=== PATIENT | male | born 1995 | race Caucasian/White ===

== ENCOUNTER 2023-08-18 03:46 | Emergency (ER) | payer OTHER, SELFPAY ==
[2023-08-18 03:50] VITALS: BP 147/108
[2023-08-18 04:17] LABS: % Basophils 0.9 % (0-2); % Eosinophils 3.3 % (0-6); % Immature Granulocytes 0.4 % (0-0.5); % Monocytes 14.1 % (1.7-9.3); % Neutrophils 58.3 % (42.2-75.2); Absolute Basophils 0.1 10^3/uL (0-0.2); Absolute Eosinophils 0.3 10^3/uL (0-0.7); Absolute Lymphocytes 2.3 10^3/uL (1.2-3.4); Absolute Monocytes 1.4 10^3/uL (0.1-0.6); Absolute Neutrophils 5.9 10^3/uL (1.4-6.5); Hematocrit 45.9 % (39.0-52.0); Hemoglobin 15.9 g/dL (13.0-18.0); Mean Corp Hgb Conc. 34.6 g/dL (33.0-37.0); Mean Corpuscular Hgb 30.5 pg (27.0-31.0); Mean Corpuscular Volume 87.9 fL (80.0-94.0); Nucleated Red Blood Cells % 0 % (-); Platelet Count 349 10^3/uL (130-400); Red Blood Cell Count 5.22 10^6/uL (4.70-6.10); Red Cell Dist. Width 12.5 % (11.5-14.5); White Blood Cell Count 10.1 10^3/uL (4.8-10.8)
--- NOTE | 2023-08-18 04:19 | ED.GENMED ---
History of Present Illness
General
Chief Complaint: Abdominal Pain
Source: patient
Exam Limitations: none
Time Seen by Provider: 08/18/23 04:18
Nursing documentation reviewed up to this point in time: agreed with
Travel History
Have you had any contact with someone who has COVID-19?: Unable to Answer
Do you have any symptoms of coronavirus? Fever > 100 degrees, chills, cough, shortness of breath, sore throat, loss of taste or smell, muscle aches, or headache?: Unable to Answer
History of Present Illness
History of Present Illness:
Pleasant 28-year-old male presents with 1 week of abdominal pain. He states that it has been waxing and waning. Tonight he stated that he 'called his mom 14 times but she did not excelsior picker the phone so he drove himself to the emergency department '.
Upon arrival, he states that the pain was so bad he lied down on the triage floor. Patient denies fever, chills, nausea or vomiting. He states that this pain is been going on for a week. He did have some relief with an enema.
Past History
Past History
ED Past Medical History: Psychiatric (Anxiety, asbergers syndrome, depression)
ED Past Surgical History: Other (Adenoidectomy, myringotomy tubes)
Social History
Tobacco: Former smoker
Alcohol: None
Drug: None
Personal: Single
Living: with family
Employment: Employed
Family History
Family History: Other (Noncontributory)
Review of Systems
Review of Systems
Allergies reviewed?: Yes
Other source history: family
All Other Systems: ROS reviewed and negative except as documented in HPI and ROS
Constitutional: Reports sleep disturbance
ABD/GI: Reports abdominal pain and constipated
Psychiatric: Reports anxiety
Phy Exam
General Physical Exam
General Presentation: well appearing and no apparent distress
General Skin: warm and dry
General Habitus: normal
General Mental: alert
General Hydration: appears well hydrated
ENT Exam
ENT Exam: EOMI
Eye Exam
Eye Exam: PERRL, cornea clear and conjunctiva normal
Cardiovascular Exam
Cardiovascular Exam: regular rate/rhythm, no edema, no murmur and normal peripheral pulses
Pulmonary Exam
Pulmonary Exam: lungs clear, no respiratory distress, no rales, no crackles, no rhonchi, no stridor, no wheezing and no cough
Gastrointestinal Exam
Gastrointestinal Exam: normal bowel sounds, non tender, soft, no organomegaly, no pulsatile mass and non distended
Neurological Exam
Neurological Exam: alert, oriented x3, no motor deficits and speech normal
Musculoskeletal Exam
Musculoskeletal Exam: full ROM, no edema and neuro vasc intact
Skin Exam
Skin Exam: normal color and warm/dry
Psychiatric Exam
Psychiatric Exam: anxious
Course
Orders/Labs/Results
Orders:
Orders
08/18/23 03:55
IV Insert/Care/Rem.- Treatment PRN
08/18/23 04:06
Complete Blood Count/With Diff Urgent
Comprehensive Metabolic Panel Urgent
Lactic Acid Urgent
Lipase Urgent
08/18/23 04:18
0.9% Sodium Chloride 1000 ml [Nss] 1,000 ml IV BOLUS
HYDROmorphone [Dilaudid] 0.5 mg IV NOW STA
Ondansetron Injectable [Zofran] 4 mg IV NOW STA
08/18/23 04:35
US Abdomen Complete/Upper Urgent
Comment:
Reason For Exam: upper abd pain, incr lfts
08/18/23 05:48
CT Abd/pelvis W Iv Cont Urgent
Comment:
Reason For Exam: abdominal pain
08/18/23 05:49
HYDROmorphone [Dilaudid] 0.5 mg IV NOW STA
08/18/23 07:18
Magnesium Citrate [Citroma] 300 ml PO ONCE ONE
Abnormal Lab Results
08/18/23
04:06
Absolute Monos (auto) 1.4 H 10^3/uL
(0.1-0.6)
Monocytes % 14.1 H %
(1.7-9.3)
Calcium 10.3 H mg/dl
(8.4-10.2)
AST 71 H U/L
(17-59)
ALT 112 H U/L
(0-50)
Lipase 18 L U/L
(23-300)
08/18/23 04:06
08/18/23 04:06
Vital Signs
Initial and Last Documented VS:
Initial Vital Signs
Temp Pulse Resp BP Pulse Ox
97.7 F 82 20 147/108 100
08/18/23 03:50 08/18/23 03:50 08/18/23 03:50 08/18/23 03:50 08/18/23 03:50
Last Documented Vital Signs
Temp Pulse Resp BP Pulse Ox
97.7 F 50 14 159/88 99
08/18/23 03:50 08/18/23 06:08 08/18/23 06:08 08/18/23 07:00 08/18/23 06:08
*Critical Care Note
Total Time (30-74mins, 75-104mins- exclusive of procedures): Not Applicable
Update Note
Update Note:
CT abdomen and pelvis with intravenous contrast
IMPRESSION:
Appendix normal. No bowel obstruction. Gastric and small bowel wall thickening suggesting gastroenteritis.
No cholecystitis or pancreatitis. No obstructing renal stone. Lung bases are clear. Abdominal aorta is of normal caliber.
Mild bladder wall thickening; correlate with urinalysis.
Ultrasound negative
ED Attending Note
-
Portions of this chart may have been created with voice recognition software.� Occasional wrong word or��sound alike� substitutions may have occurred due to the inherent limitations of voice recognition software.
Discharge Plan
Departure
Patient Disposition: Home (Routine Discharge)
Date of Disposition: 08/18/23
Time of Disposition: 07:22
Patient with high blood pressure during this ER visit?: No
Condition: Good
Discharge Problem:
Abdominal pain, Constipation
Prescriptions:
No Action
fluoxetine [Prozac] 20 MG capsule
40 mg PO DAILY
clonidine HCl 0.3 MG tablet
0.3 mg PO HS
zolpidem 10 MG tablet
10 mg PO HS Qty: 7 0RF
Rx Instructions:
Do not combine with alcohol or any other sedatives
Vraylar 3 mg Capsule
3 mg PO DAILY
Referrals:
Manjit Hi DO [Family Provider] -
Activity Restrictions/Additional Instructions:
It was a pleasure meeting you and taking part in your care. We hope for your continued healing and wellness.
Please read discharge instructions in their entirety. However, they are for general education and may not describe your exact diagnosis at discharge. Information on your ER visit and medical conditions were discussed with you along with appropriate
follow up information...
If indicated, please take your medications as instructed and indicated on discharge paperwork.
Please schedule a follow up appointment as directed. Call to schedule an appointment
Please return to the emergency department with ANY change in, persisting, or worsening of symptoms. If any of your symptoms do not improve, or persist, or become more severe within 6-12 hours, please return to the emergency department for further
care.
Please return to the emergency department if you develop a headache, neck pain/stiffness, fever greater than 100.4F, chest pain, shortness of breath, persistent nausea, vomiting, slurred speech, difficulty walking, numbness/tingling, weakness, signs
of infection or any other symptoms that are worrisome to you.
If you have any questions or concerns please do not hesitate to call the Hospital at or E-mail me directly at [email or web address]
Interventions
Interventions:
*Risk Screen - Suicide Last Done: 08/18/23 03:50
*General Assessment Last Done: 08/18/23 03:50
*Neglect/Abuse Screening Last Done: 08/18/23 03:50
ED- Fall Risk Assessment Last Done: 08/18/23 03:50
YT-Gdnqjl-Tktdqpuswy Assessment Last Done: 08/18/23 04:05
Discharge Date and Time
Print Language: DANISH
[2023-08-18 04:27] LABS: Lactic Acid 0.9 mmol/L (0.7-2.0)
[2023-08-18] MEDS: NSS 1000 IV (04:27)
[2023-08-18] MEDS: DILAUDID 0.5 MG IV ×2 (04:28→06:05)
[2023-08-18] MEDS: ZOFRAN 4 MG IV (04:28)
[2023-08-18 04:31] LABS: ALT (SGPT) 112 U/L (0-50); AST (SGOT) 71 U/L (17-59); Albumin 4.9 g/dl (3.5-5.0); Alkaline Phosphatase 40 U/L (38-126); Blood Urea Nitrogen 15 mg/dl (9-20); Calcium 10.3 mg/dl (8.4-10.2); Carbon Dioxide 29 mmol/L (22-30); Chloride 99 mmol/L (98-107); Glucose 89 mg/dl (70-99); Lipase 18 U/L (23-300); Potassium 4.3 mmol/L (3.5-5.1); Sodium 137 mmol/L (135-145); Total Bilirubin 0.4 mg/dl (0.2-1.3); Total Protein 7.5 g/dl (6.3-8.2); eGFR > 60.00
[2023-08-18 04:44] VITALS: BP 152/95
[2023-08-18 06:04] VITALS: BP 154/88
[2023-08-18 06:08] VITALS: BMI 31.4
[2023-08-18 07:00] VITALS: BP 159/88
[2023-08-18] MEDS: CITROMA 300 ML PO (07:27)
--- NOTE | 2023-08-18 08:07 | EDRN ---
Pt left his d/c paperwork in the room
== END 2023-08-18 08:10 | disposition home or self-care (01) ==
LOC: EMR 03:46
PROVIDERS: EMERGENCY PHYSICIAN Student in an Organized Health Care Education/Training Program; FAMILY PHYSICIAN Family Medicine
DX: R10.10 Upper abdominal pain, unspecified (principal); K59.00 Constipation, unspecified; R11.10 Vomiting, unspecified; F41.9 Anxiety disorder, unspecified; F32.A Depression, unspecified; F31.9 Bipolar disorder, unspecified; F84.5 Asperger's syndrome; Z87.891 Personal history of nicotine dependence; Z88.1 Allergy status to other antibiotic agents; Z88.2 Allergy status to sulfonamides; Z91.018 Allergy to other foods
CPT/HCPCS: 99285; 96361; 96374; 96375; 96376; 74177; 76700; 80053; 83605; 83690; 85025; Q9967

== ENCOUNTER 2023-09-30 11:14 | Emergency (ER) | payer OTHER, SELFPAY ==
[2023-09-30 11:19] VITALS: BP 160/100
--- NOTE | 2023-09-30 11:51 | ED.GENMED ---
History of Present Illness
General
Chief Complaint: Alcohol Problem
Source: patient
Exam Limitations: none
Time Seen by Provider: 09/30/23 11:19
Nursing documentation reviewed up to this point in time: agreed with
Travel History
Have you had any contact with someone who has COVID-19?: No
Do you have any symptoms of coronavirus? Fever > 100 degrees, chills, cough, shortness of breath, sore throat, loss of taste or smell, muscle aches, or headache?: No
History of Present Illness
History of Present Illness:
Patient with history of chronic alcoholism for 'years', presents to ED with concern for potential 'withdrawal'. Patient describes shaky sensation and 'not feeling well'. Patient's last alcohol intake was approximately 5 hours ago. Denies fever or
chills. Denies chest pain or shortness of breath. Denies dizziness. Denies headache. Denies abdominal pain. Denies diarrhea. Denies use of any other illicit medications. Patient also smokes daily. Patient is interested in alcohol rehab.
Past History
Past History
ED Past Medical History: Psychiatric (Anxiety, asbergers syndrome, depression)
ED Past Surgical History: Other (Adenoidectomy, myringotomy tubes)
Social History
Tobacco: Former smoker
Alcohol: None
Drug: None
Personal: Single
Living: with family
Employment: Employed
Family History
Family History: Other (Noncontributory)
Review of Systems
Review of Systems
Allergies reviewed?: Yes
All Other Systems: ROS reviewed and negative except as documented in HPI and ROS
Constitutional: Reports no symptoms
EENT: Reports no symptoms
Respiratory: Reports no symptoms
Cardiac: Reports palpitations
ABD/GI: Reports no symptoms
Musculoskeletal: Reports no symptoms
Skin: Reports no symptoms
Neurological: Reports other (Tremor)
Phy Exam
Physical Exam
Physical Exam:
Physical Exam
General: no apparent distress, not acutely ill. afebrile
Head: nc/at. eomi
Neck: supple. no meningeal signs.
Heart: tachycardic, no murmur. equal radial pulses.
Lungs: no acute respiratory distress. clear bilaterally
Abdomen: normal bowel sounds. not tender.
Neuro: alert and oriented. no focal neurological deficits
Skin: no rash
Psychiatric: well kept. interactive and cooperative. anxious appearing
Extremities: no edema. no calf tenderness.
Scores
Withdrawal Assessment of Alcohol
Withdrawal Assessment Completed?: Not applicable
Course
Orders/Labs/Results
Orders:
Orders
09/30/23 11:18
ECG [Electrocardiogram (*1)] Urgent
Reason for Study: Tachycardia
EKG- Treatment ONCE
09/30/23 11:47
0.9% Sodium Chloride 1000 ml [Nss] 1,000 ml IV BOLUS
Lorazepam [Ativan] 1 mg IV NOW STA
09/30/23 12:09
Ondansetron Injectable [Zofran] 4 mg IV NOW STA
09/30/23 12:11
Ondansetron Injectable [Zofran] 4 mg .ROUTE .STK-MED ONE
09/30/23 12:35
Alcohol Urgent
CPK [Creatine Phosphokinase] Urgent
Complete Blood Count/With Diff Urgent
Comprehensive Metabolic Panel Urgent
Magnesium Urgent
Abnormal Lab Results
09/30/23
12:35
Absolute Monos (auto) 0.9 H 10^3/uL
(0.1-0.6)
AST 60 H U/L
(17-59)
Creatine Kinase 333 H U/L
(55-170)
09/30/23 12:35
09/30/23 12:35
Vital Signs
Initial and Last Documented VS:
Initial Vital Signs
Temp Pulse Resp BP Pulse Ox
98.8 F 112 16 160/100 96
09/30/23 11:19 09/30/23 11:19 09/30/23 11:19 09/30/23 11:19 09/30/23 11:19
Last Documented Vital Signs
Temp Pulse Resp BP Pulse Ox
98.8 F 108 17 158/85 97
09/30/23 11:19 09/30/23 15:15 09/30/23 15:15 09/30/23 15:00 09/30/23 13:45
MDM/Problems Addressed
MDM/Problems Addressed:
Pt evaluated in ED by by [facility]ang from [facility] - will be transferred for in-patient alcohol rehab/detox tx. Pt otherwise, remains hemodynamically stable without any further vomiting episodes.
*EKG
Interpreted by ED Provider?: Yes
EKG Intrepretation Date: 09/30/23
Heart Rate: 114
Rate: tachycardiac
Rhythm: sinus
Hollis: normal axis
Interval: normal interval
*Critical Care Note
Total Time (30-74mins, 75-104mins- exclusive of procedures): Not Applicable
ED Attending Note
-
Portions of this chart may have been created with voice recognition software.� Occasional wrong word or��sound alike� substitutions may have occurred due to the inherent limitations of voice recognition software.
Discharge Plan
Departure
Patient Disposition: Acute Rehab Facility
Date of Disposition: 09/30/23
Time of Disposition: 13:53
Discharge Problem:
Alcohol dependence
Prescriptions:
No Action
fluoxetine [Prozac] 20 MG capsule
40 mg PO DAILY
clonidine HCl 0.3 MG tablet
0.3 mg PO HS
zolpidem 10 MG tablet
10 mg PO HS Qty: 7 0RF
Rx Instructions:
Do not combine with alcohol or any other sedatives
Vraylar 3 mg Capsule
3 mg PO DAILY
Referrals:
Porrino,Carlos Eduardo., DO [Family Provider] -
Interventions
Interventions:
*Risk Screen - Suicide Last Done: 09/30/23 11:19
*General Assessment Last Done: 09/30/23 11:19
*Neglect/Abuse Screening Last Done: 09/30/23 11:19
ED- Fall Risk Assessment Last Done: 09/30/23 12:20
*ED COVID-19 Vaccine History Last Done: 09/30/23 11:19
*Nursing Disposition Last Done: 09/30/23 15:28
ED- Neurological Assessment Last Done: 09/30/23 12:20
ED-Psychological Assessment Last Done: 09/30/23 12:20
Discharge Date and Time
Discharge Date/Time: 09/30/23 15:30
Print Language: TURKISH
[2023-09-30 12:20] VITALS: BMI 31.3
[2023-09-30] MEDS: NSS 1000 IV (12:24)
[2023-09-30] MEDS: ZOFRAN 4 MG IV (12:24)
[2023-09-30] MEDS: ATIVAN 1 MG IV (12:24)
[2023-09-30 12:42] LABS: % Basophils 1.2 % (0-2); % Eosinophils 1.8 % (0-6); % Immature Granulocytes 0.3 % (0-0.5); % Lymphocytes 21.7 % (20.5-51.1); % Monocytes 8.8 % (1.7-9.3); % Neutrophils 66.2 % (42.2-75.2); Absolute Basophils 0.1 10^3/uL (0-0.2); Absolute Eosinophils 0.2 10^3/uL (0-0.7); Absolute Lymphocytes 2.1 10^3/uL (1.2-3.4); Absolute Monocytes 0.9 10^3/uL (0.1-0.6); Absolute Neutrophils 6.4 10^3/uL (1.4-6.5); Hematocrit 47.8 % (39.0-52.0); Hemoglobin 17.3 g/dL (13.0-18.0); Mean Corp Hgb Conc. 36.2 g/dL (33.0-37.0); Mean Corpuscular Volume 85.7 fL (80.0-94.0); Mean Platelet Volume 8.5 fL (7.4-10.4); Nucleated Red Blood Cells % 0 % (-); Platelet Count 349 10^3/uL (130-400); Red Blood Cell Count 5.58 10^6/uL (4.70-6.10); Red Cell Dist. Width 12.5 % (11.5-14.5); White Blood Cell Count 9.7 10^3/uL (4.8-10.8)
[2023-09-30 12:57] LABS: ALT (SGPT) 44 U/L (0-50); AST (SGOT) 60 U/L (17-59); Albumin 4.9 g/dl (3.5-5.0); Alcohol 37 mg/dl; Alkaline Phosphatase 80 U/L (38-126); Blood Urea Nitrogen 14 mg/dl (9-20); Calcium 9.8 mg/dl (8.4-10.2); Carbon Dioxide 26 mmol/L (22-30); Chloride 101 mmol/L (98-107); Creatine Phosphokinase 333 U/L (55-170); Estimated Creatinine Clearance > 125 ml/min; Glucose 83 mg/dl (70-99); Magnesium 2.1 mg/dl (1.6-2.3); Potassium 4.2 mmol/L (3.5-5.1); Sodium 139 mmol/L (135-145); Total Bilirubin 0.7 mg/dl (0.2-1.3); Total Protein 7.5 g/dl (6.3-8.2); eGFR > 60.00
[2023-09-30 13:00] VITALS: BP 154/103
[2023-09-30 15:00] VITALS: BP 158/85
== END 2023-09-30 15:30 ==
LOC: EMR 11:14
PROVIDERS: EMERGENCY PHYSICIAN Emergency Medicine; FAMILY PHYSICIAN Family Medicine
DX: F10.20 Alcohol dependence, uncomplicated (principal); R07.9 Chest pain, unspecified; F41.9 Anxiety disorder, unspecified; F32.A Depression, unspecified; F84.5 Asperger's syndrome; J45.909 Unspecified asthma, uncomplicated; F31.9 Bipolar disorder, unspecified; F17.210 Nicotine dependence, cigarettes, uncomplicated; Z91.51 Personal history of suicidal behavior; Z88.1 Allergy status to other antibiotic agents; Z88.2 Allergy status to sulfonamides; Z91.018 Allergy to other foods
CPT/HCPCS: 99285; 96374; 96375; 96361 ×2; 80053; 82077; 82550; 83735; 85025; 93005

== ENCOUNTER 2024-08-15 07:26 | Emergency (ER) | payer OTHER, SELFPAY ==
[2024-08-15] VITALS (8 sets, daily range): BP systolic 136–182; BP diastolic 83–140
--- NOTE | 2024-08-15 08:15 | ED.GENMED ---
History of Present Illness
General
Chief Complaint: Anxiety
Source: patient
Exam Limitations: none
Time Seen by Provider: 08/15/24 07:58
Nursing documentation reviewed up to this point in time: agreed with
History of Present Illness
History of Present Illness:
The patient is a 29-year-old man with a past medical history of Aspergers, high blood pressure, and anxiety who reports severe anxiety since last night. Patient reports that he does not feel suicidal or homicidal. He does not feel he needs to go
inpatient for psychiatric help. He reports that he is not compliant with his clonidine, Prozac, and Vraylar. He reports that he has been on a drinking binge, consuming several alcoholic shots per day for the last week. He reports that when he
drinks heavily like this he does not sleep or eat well. He does not believe he is in alcohol withdrawal, as he reports that he last drank at 8:00 last night but states that he has had to enter detox in the past. Patient lives at home with his
family and reports he feels safe. He reports that he works with [employer]. Patient states he currently does not have a therapist because he had to 'fire his therapist' because the therapist was cutting his sessions by 20 to 25 minutes and he felt
rejected and unheard. The patient admits to smoking cigarettes, vaping and using medical marijuana. He denies other drug use. He reports that since last night he has been feeling overwhelming anxiety, palpitations, tingling in his legs,
dizziness, and chest pain and shortness of breath. Patient denies recent illness such as fever, sore throat and cough. He reports mild intermittent headaches. Patient reports that he has been evaluated in the hospital for similar symptoms. He
denies any recent changes that specifically have caused this anxiety other than being off his medication for at least 1 month.
Past History
Past History
ED Past Medical History: Psychiatric (Anxiety, asbergers syndrome, depression)
ED Past Surgical History: Other (Adenoidectomy, myringotomy tubes)
Social History
Tobacco: Smoker
Alcohol: Binge drinker
Drug: None and Marijuana
Personal: Single
Living: with family
Employment: Employed
Family History
Family History: Other (Noncontributory)
Review of Systems
Review of Systems
Allergies reviewed?: Yes
All Other Systems: ROS reviewed and negative except as documented in HPI and ROS
Constitutional: Reports sleep disturbance
EENT: Reports no symptoms
Respiratory: Reports no symptoms
Cardiac: Reports chest pain and palpitations
ABD/GI: Reports anorexia
: Reports no symptoms
Musculoskeletal: Reports no symptoms
Skin: Reports no symptoms
Neurological: Reports dizzy
Endocrine: Reports no symptoms
Hematologic/Lymphatic: Reports no symptoms
Psychiatric: Reports depression and anxiety
Phy Exam
Physical Exam
Physical Exam:
Physical Exam
General: Patient appears anxious and mildly guarded. He is disheveled with matted hair. Foul-smelling.
Neck: supple. Dry mucous membrane
Heart: Tachycardic
Lungs: no acute respiratory distress. clear bilaterally
Abdomen: normal bowel sounds. not tender. no CVAT
Neuro: alert and orientedx3. no focal neurological deficits. Tremorous hands at rest
Skin: no rash
Psychiatric: Cooperative, interactive
Extremities: no edema. no calf tenderness. negative homans. good distal pulses
Course
Orders/Labs/Results
Orders:
Orders
08/15/24 07:44
Electrocardiogram (*1) Urgent
Reason for Study: Tachycardia
Crisis Consult Urgent
Reason for Consult: anxiety
EKG- Treatment ONCE
08/15/24 08:13
Clonidine [Catapres] 0.3 mg PO NOW STA
Lorazepam [Ativan] 1 mg IV NOW STA
08/15/24 08:19
Alcohol Urgent
CMP [Comprehensive Metabolic Panel] Urgent
Complete Blood Count/No Diff Urgent
Troponin I Urgent
08/15/24 08:21
0.9% Sodium Chloride 1000 ml [Nss] 1,000 ml IV BOLUS
08/15/24 11:06
0.9% Sodium Chloride 1000 ml [Nss] 1,000 ml IV BOLUS
Abnormal Lab Results
08/15/24
08:19
WBC 16.6 H 10^3/uL
(4.8-10.8)
Glucose 105 H mg/dl
(70-99)
AST 68 H U/L
(17-59)
ALT 70 H U/L
(0-50)
08/15/24 08:19
08/15/24 08:19
Vital Signs
Initial and Last Documented VS:
Initial Vital Signs
Temp Pulse Resp BP Pulse Ox
98.5 F 138 18 147/105 96
08/15/24 07:39 08/15/24 07:39 08/15/24 07:39 08/15/24 07:39 08/15/24 07:39
Last Documented Vital Signs
Temp Pulse Resp BP Pulse Ox
98.5 F 105 16 136/92 98
08/15/24 07:39 08/15/24 11:15 08/15/24 11:15 08/15/24 11:00 08/15/24 11:00
MDM/Problems Addressed
Differential Diagnosis Includes:
Acute alcohol withdrawal, acute anxiety, hyponatremia, hypertensive urgency
MDM/Problems Addressed:
Patient presents with acute anxiety, chest pain, shortness of breath and palpitations
Chronic conditions affecting care: Psychiatric illness
Acute Exacerbation and/or Progression of Chronic Illness:
Patient likely has acute anxiety due to poor compliance with medication
Acute Exacerbation and/or Progression of Chronic Illness: Psychiatric illness
*Pulse Oximetry
Patient hypoxic: no
*EKG
Interpreted by ED Provider?: Yes
Interpretation: abnormal
Comparison EKG: changes noted
Rate: tachycardiac
Rhythm: sinus
Monitor: normal axis
Interval: normal interval
QRS Pattern: normal QRS
Ischemia: non-specific ST changes
*[employer] Derrick Operator Interpretation
Rate: tachycardiac
Interpretation: abnormal
Rhythm: sinus
*Critical Care Note
Total Time (30-74mins, 75-104mins- exclusive of procedures): Not Applicable
Data Reviewed
Review of Other/Old Records Reveals: Progress Notes (Dr. Rodriguez's consult note reviewed from 2016 when patient made suicidal statements and his 302 was upheld)
Source: patient
Update Note
Update Note:
11:20 AM patient's heart rate is ranging from 90s to 110s. I told the patient that I am worried about possible alcohol withdrawal. He reports that he is only been drinking for 5 days and prior to that he has been sober for a long time. Patient
adamantly does not think it is alcohol withdrawal and does not want to be admitted. Patient reports he feels like his rapid heart rate is due to not taking the Clonidine and an anxiety attack
I told the patient that we will give him 1 more liter of IV fluids and have him eat a sandwich and reassess how he feels. Patient reports he feels much better
12:30 PM patient is still tachycardic in 110s and appears anxious. His tremor is improved. I recommended that patient be admitted given my concern for alcohol withdrawal. Patient does not think he is in alcohol withdrawal, however, I have given
him 2 bags of IV fluids, clonidine and Ativan he is still tachycardic. He reports he is a history of detox in the past. I explained to him that he could have unsafe tachycardia, high blood pressure, seizure and even and he still adamantly
wants to go home. Patient is calm, alert and oriented x 3 and I feel he understands my concern
ED Attending Note
-
Portions of this chart may have been created with voice recognition software.� Occasional wrong word or��sound alike� substitutions may have occurred due to the inherent limitations of voice recognition software.
Discharge Plan
Departure
Patient Disposition: Against Medical Advice
Date of Disposition: 08/15/24
Time of Disposition: 12:20
Patient with high blood pressure during this ER visit?: Yes
Condition: Good
Covid-19: Not Applicable
Discharge Problem:
Alcohol withdrawal, Anxiety
Instructions: Anxiety, Adult (DC), Alcohol Withdrawal (DC)
Prescriptions:
New
clonidine HCl 0.3 mg tablet
0.3 mg PO HS Qty: 30 0RF
fluoxetine 40 mg capsule
40 mg PO DAILY Qty: 30 0RF
Vraylar 3 mg capsule
3 mg PO DAILY Qty: 30 0RF
No Action
fluoxetine [Prozac] 20 MG capsule
40 mg PO DAILY
clonidine HCl 0.3 MG tablet
0.3 mg PO HS
zolpidem 10 MG tablet
10 mg PO HS Qty: 7 0RF
Rx Instructions:
Do not combine with alcohol or any other sedatives
Vraylar 3 mg Capsule
3 mg PO DAILY
Referrals:
Manjit Hi, [Family Provider] -
Activity Restrictions/Additional Instructions:
Due to your heart rate remaining high despite giving you medication and IV fluids that should have lowered it, we are still worried about the possibility of alcohol withdrawal. This is why we recommended that you be admitted to the hospital.
Alcohol withdrawal can lead to unsafe high blood pressure, high heart rate, confusion, seizures and even . Please return with any concerns.
Please follow-up with [facility] as scheduled
Interventions
Interventions:
*Risk Screen - Suicide Last Done: 08/15/24 07:39
*General Assessment Last Done: 08/15/24 07:39
*Neglect/Abuse Screening Last Done: 08/15/24 07:39
*ED- Fall Risk Assessment Last Done: 08/15/24 08:12
*ED COVID-19 Vaccine History Last Done: 08/15/24 08:12
ED- Cardiac Assessment Last Done: 08/15/24 08:09
ED- Neurological Assessment Last Done: 08/15/24 08:09
ED-Psychological Assessment Last Done: 08/15/24 08:09
ED- Pulmonary Assessment Last Done: 08/15/24 08:09
Discharge Date and Time
Print Language: SLOVENIAN
[2024-08-15] MEDS: CATAPRES 0.3 MG PO (08:28)
[2024-08-15] MEDS: ATIVAN 1 MG IV (08:28)
[2024-08-15] MEDS: NSS 1000 IV ×2 (08:30→11:13)
[2024-08-15 08:31] LABS: Hematocrit 49.8 % (39.0-52.0); Hemoglobin 17.7 g/dL (13.0-18.0); Mean Corp Hgb Conc. 35.5 g/dL (33.0-37.0); Mean Corpuscular Hgb 30.2 pg (27.0-31.0); Mean Platelet Volume 8.6 fL (7.4-10.4); Platelet Count 354 10^3/uL (130-400); Red Blood Cell Count 5.86 10^6/uL (4.70-6.10); Red Cell Dist. Width 12.4 % (11.5-14.5); White Blood Cell Count 16.6 10^3/uL (4.8-10.8)
--- NOTE | 2024-08-15 08:34 | EDRN ---
Received patient on stretcher. Patient with c/o feeling anxious due to his blood pressure being elevated and not ETOH withdrawal. Patient stated that he stopped taking his Clonidine about 1 month ago because he ran out of it and has not been able to
get in touch with his doctor. Patient stated 'I have only been drinking for the past 6 days.' +tremors noted.
[2024-08-15 08:47] LABS: ALT (SGPT) 70 U/L (0-50); AST (SGOT) 68 U/L (17-59); Alkaline Phosphatase 83 U/L (38-126); Blood Urea Nitrogen 15 mg/dl (9-20); Calcium 9.8 mg/dl (8.4-10.2); Carbon Dioxide 29 mmol/L (22-30); Chloride 101 mmol/L (98-107); Estimated Creatinine Clearance > 125 ml/min; Glucose 105 mg/dl (70-99); Potassium 4.2 mmol/L (3.5-5.1); Sodium 141 mmol/L (135-145); Total Bilirubin 0.9 mg/dl (0.2-1.3); Total Protein 7.7 g/dl (6.3-8.2); eGFR > 60.00
[2024-08-15 08:48] LABS: Alcohol None Detected
[2024-08-15 08:59] LABS: Troponin I < 0.012 ng/ml
== END 2024-08-15 12:45 | disposition left against medical advice (07) ==
LOC: EMR 07:26
PROVIDERS: Emergency Medicine; EMERGENCY PHYSICIAN Emergency Medicine; FAMILY PHYSICIAN Family Medicine
DX: F10.939 Alcohol use, unspecified with withdrawal, unspecified (principal); F41.9 Anxiety disorder, unspecified; F17.210 Nicotine dependence, cigarettes, uncomplicated; F17.290 Nicotine dependence, other tobacco product, uncomplicated; F84.5 Asperger's syndrome; F12.90 Cannabis use, unspecified, uncomplicated
CPT/HCPCS: 96374; 96361; 99284; 80053; 82077; 84484; 85027; 93005

== ENCOUNTER 2024-12-14 18:52 | Inpatient (IN) | payer OTHER, SELFPAY ==
[2024-12-14] VITALS (11 sets, daily range): BP systolic 123–171; BP diastolic 57–110; BMI 35.6; BMI 35.4
--- NOTE | 2024-12-14 12:47 | ED.GENMED ---
History of Present Illness
General
Chief Complaint: Alcohol Problem
Source: patient
Exam Limitations: none
Time Seen by Provider: 12/14/24 12:07
Nursing documentation reviewed up to this point in time: agreed with
History of Present Illness
History of Present Illness:
29-year-old male presenting to the emergency department today seeking detox for alcohol abuse. Has been drinking for multiple months every day at least 20 drinks per day. Last drink was roughly 6 hours prior to arrival. He is starting to feel
jittery anxious sweaty and nauseous.
Past History
Past History
ED Past Medical History: Psychiatric (Anxiety, asbergers syndrome, depression)
ED Past Surgical History: Other (Adenoidectomy, myringotomy tubes)
Social History
Tobacco: Smoker
Alcohol: Binge drinker
Drug: None and Marijuana
Personal: Single
Living: with family
Employment: Employed
Family History
Family History: Other (Noncontributory)
Review of Systems
Review of Systems
Allergies reviewed?: Yes
All Other Systems: ROS reviewed and negative except as documented in HPI and ROS
Phy Exam
Physical Exam
Physical Exam:
GENERAL: Alert , sweaty appears somewhat anxious
EYE: pupils equal and reactive
NECK: Supple, no significant adenopathy.
ENT: o/p clr, mmm.
CARDIAC: Regular rate and rhythm .
LUNGS: Clear breath sounds bilaterally, no acute respiratory distress, no wheezes/rales/rhonchi
ABDOMEN: Soft, without focal tenderness, no r/g, no cvat
NEUROLOGICAL: Alert and oriented, no focal neuro deficits
SKIN: Warm and dry, skin intact.
MUSCULOSKELETAL: No edema, well perfused.
PSYCH: Normal and appropriate interaction.
Scores
Withdrawal Assessment of Alcohol
Withdrawal Assessment Completed?: Yes
Nausea and Vomiting: Mild nausea with no vomiting
Tactile Disturbances: Very mild itching, pins and needles, burning or numbness
Tremor: Moderate, with patient's arms extended
Auditory Disturbances: Very mild harshness or ability to fighten
Paroxysmal Sweats: Drenching sweats
Visual Disturbances: Mild sensitivity
Anxiety: Moderately anxious, or guarded, so anxiety is inferred
Headache, Fullness in Head: Mild
Agitation: Moderately fidgety and restless
Orientation and clouding of sensorium: Oriented and can do serial additions
Total CIWA Score: 26
Alcohol Withdrawal Medication Recommendation: Equal to MSAS >11. Lorazepam 2-4mg IV NOW and re-assess q1hr
Course
Orders/Labs/Results
Orders:
Orders
12/14/24 12:45
0.9% Sodium Chloride 1000 ml [Nss] 1,000 ml IV BOLUS
Multivitamin [Theragran] 1 tablet PO NOW STA
Thiamine HCl [Vitamin B1] 100 mg PO NOW STA
12/14/24 12:56
Alcohol Urgent
Complete Blood Count/With Diff Urgent
Comprehensive Metabolic Panel Urgent
Fentanyl, Urine Urgent
Urinalysis Reflex To Culture Urgent
Date Specimen was Collected: 12/14/24
Time Specimen was Collected: 12:50
Urine Drug Abuse Screen Urgent
Date Specimen was Collected: 12/14/24
Time Specimen was Collected: 12:50
Urine Microscopic Reflex Cult Urgent
12/14/24 12:58
Lorazepam [Ativan] 2 mg IV NOW STA
Ondansetron Injectable [Zofran] 4 mg IV NOW STA
12/14/24 14:35
Lorazepam [Ativan] 2 mg IV NOW STA
12/14/24 15:57
Lorazepam [Ativan] 2 mg IV NOW STA
12/14/24 16:29
Add On- LAB Urgent
Tests Added?: alcohol level
Abnormal Lab Results
12/14/24
12:56
Absolute Monos (auto) 0.8 H 10^3/uL
(0.1-0.6)
Lymphocytes % 16.1 L %
(20.5-51.1)
Monocytes % 9.7 H %
(1.7-9.3)
AST 162 H U/L
(17-59)
ALT 160 H U/L
(0-50)
Urine Urobilinogen 3+ A
(Neg - 1+)
Urine Albumin (Reflex) 2+ A
(Neg - Trace)
U Methamphetamines Scrn Positive H
(Negative)
U Marijuana (THC) Screen Positive H
(Negative)
12/14/24 12:56
12/14/24 12:56
Vital Signs
Initial and Last Documented VS:
Initial Vital Signs
Temp Pulse Resp BP Pulse Ox
99.0 F 117 16 171/110 98
12/14/24 11:20 12/14/24 11:20 12/14/24 11:20 12/14/24 11:20 12/14/24 11:20
Last Documented Vital Signs
Temp Pulse Resp BP Pulse Ox
98.8 F 126 17 147/101 98
12/14/24 16:16 12/14/24 16:15 12/14/24 16:15 12/14/24 16:00 12/14/24 13:50
MDM/Problems Addressed
MDM/Problems Addressed:
29-year-old male presenting to the emergency department today with concerns of alcohol abuse seeking detox. Claims that he feels like he is going through withdrawal at this point last drink was roughly 6 hours ago. Typically has about 20 beers per
day. On initial assessment patient is in moderate withdrawal. M sats in the mid 20s. Was given dose of Ativan still ongoing symptoms after reassessment after about 20 minutes. Repeated Ativan dose as well. Still ongoing significant withdrawal
symptoms plan to admit concerning patient requiring multiple doses of IV benzodiazepine. Still tachycardic in the low 110s.
*Pulse Oximetry
SaO2: 98
Oxygen Mode of Delivery: Room air
Patient hypoxic: no (98)
*Critical Care Note
Total Time (30-74mins, 75-104mins- exclusive of procedures): Not Applicable
ED Attending Note
-
Portions of this chart may have been created with voice recognition software.� Occasional wrong word or��sound alike� substitutions may have occurred due to the inherent limitations of voice recognition software.
Discharge Plan
Departure
Patient Disposition: Admit
Date of Disposition: 12/14/24
Time of Disposition: 17:04
Admit to: Telemetry
Admit to doctor: Shane
Presentation/result/management discussed w/ accepting MD/DO: Hospitalist
Patient with high blood pressure during this ER visit?: No
Condition: Good
Covid-19: Not Applicable
Discharge Problem:
Alcohol withdrawal
Prescriptions:
No Action
fluoxetine [Prozac] 20 MG capsule
40 mg PO DAILY
clonidine HCl 0.3 MG tablet
0.3 mg PO HS
zolpidem 10 MG tablet
10 mg PO HS Qty: 7 0RF
Rx Instructions:
Do not combine with alcohol or any other sedatives
Vraylar 3 mg Capsule
3 mg PO DAILY
clonidine HCl 0.3 mg tablet
0.3 mg PO HS Qty: 30 0RF
fluoxetine 40 mg capsule
40 mg PO DAILY Qty: 30 0RF
Vraylar 3 mg capsule
3 mg PO DAILY Qty: 30 0RF
Referrals:
Manjit Hi DO [Family Provider, Family Practice]
Interventions
Interventions:
*Risk Screen - Suicide Last Done: 12/14/24 11:20
*General Assessment Last Done: 12/14/24 13:28
*Neglect/Abuse Screening Last Done: 12/14/24 11:20
*ED- Fall Risk Assessment Last Done: 12/14/24 13:28
ED- Neurological Assessment Last Done: 12/14/24 13:28
ED-Psychological Assessment Last Done: 12/14/24 13:28
Discharge Date and Time
Print Language: TAMAZIGHT
[2024-12-14] MEDS: THERAGRAN 1 TABLET PO (13:01)
[2024-12-14] MEDS: VITAMIN B1 100 MG PO (13:01)
[2024-12-14] MEDS: ATIVAN 2 MG IV ×3 (13:01→16:04)
[2024-12-14] MEDS: ZOFRAN 4 MG IV (13:01)
[2024-12-14] MEDS: NSS 1000 IV ×2 (13:03→22:26)
[2024-12-14 13:07] LABS: Hematocrit 44.3 % (39.0-52.0); Hemoglobin 15.5 g/dL (13.0-18.0); Mean Corp Hgb Conc. 35.0 g/dL (33.0-37.0); Mean Corpuscular Volume 86.0 fL (80.0-94.0); Nucleated Red Blood Cells % 0 % (-); Platelet Count 257 10^3/uL (130-400); Red Cell Dist. Width 12.6 % (11.5-14.5)
[2024-12-14 13:09] LABS: Urine Character Clear (Clear)
[2024-12-14 13:20] LABS: ALT (SGPT) 160 U/L (0-50); AST (SGOT) 162 U/L (17-59); Albumin 4.9 g/dl (3.5-5.0); Alkaline Phosphatase 60 U/L (38-126); Blood Urea Nitrogen 10 mg/dl (9-20); Calcium 9.4 mg/dl (8.4-10.2); Carbon Dioxide 30 mmol/L (22-30); Chloride 100 mmol/L (98-107); Estimated Creatinine Clearance > 125 ml/min; Glucose 95 mg/dl (70-99); Potassium 4.2 mmol/L (3.5-5.1); Sodium 139 mmol/L (135-145); Total Protein 7.1 g/dl (6.3-8.2); eGFR > 60.00
[2024-12-14 14:26] LABS: Urine Red Blood Cell None Seen /HPF (0-2); Urine Squamous Cell None seen /LPF (Few); Urine White Cell None Seen /HPF (0-5)
--- NOTE | 2024-12-14 17:57 | HPS.HSE ---
Family Physician
-
Family Physician: Manjit Hi
Chief Complaint
-
Alcohol wd
History of Present Illness
29-year-old man presents seeking detox for alcohol abuse. He has been drinking for multiple months, every day, at least 20 drinks per day. His last drink was 6 hours prior to arrival. At the time of the interview, he was jittery anxious sweaty
and nauseous. He also requested inpatient rehab when stable for transfer.
Medical History
Past Medical History
Past Medical History: Reports Other
Additional Past Medical History:
Anxiety,
Asperger syndrome,
depression
Adenoidectomy,
myringotomy tubes
Past Surgical History: Reports None
Additional Past Surgical History:
See above
Social History
Tobacco: Smoker
Alcohol: Chronic Alcoholic
Drug: Marijuana
Family History
Family History: Not pertinent
Allergies / Home Medications
Allergies reflects when Allergies were last updated in ON[facility].
Home Medications with original date entered in ON[facility]
Allergy/Medication List:
Allergies
Allergy/AdvReac Type Severity Reaction Status Date / Time
amoxicillin trihydrate (From Allergy Hives Verified 12/14/24 11:22
Augmentin)
blueberry Allergy Rash Verified 12/14/24 11:22
cefprozil (From Cefzil) Allergy hives and Verified 12/14/24 11:22
rash
kiwi Allergy swollen Verified 12/14/24 11:22
tongue
potassium clavulanate (From Allergy hives and Verified 12/14/24 11:22
Augmentin) rash
sulfamethoxazole (From Allergy hives and Verified 12/14/24 11:22
Septra) rash
trimethoprim (From Septra) Allergy hives and Verified 12/14/24 11:22
rash
Home Medications
fluoxetine 20 mg capsule (Prozac) 40 mg PO DAILY 06/03/14
clonidine HCl 0.3 mg tablet 0.3 mg PO HS 03/15/16
zolpidem 10 mg tablet 10 mg PO HS #7 tabs 09/12/18
cariprazine 3 mg capsule (Vraylar) 3 mg PO DAILY 08/18/23
cariprazine 3 mg capsule (Vraylar) 3 mg PO DAILY #30 caps 08/15/24
clonidine HCl 0.3 mg tablet 0.3 mg PO HS #30 tabs 08/15/24
fluoxetine 40 mg capsule 40 mg PO DAILY #30 caps 08/15/24
Review of Systems
-
History Source: Patient
A 12 point ROS was completed and negative except as noted: Yes
Constitutional: Reports See HPI
Physical Exam
Vital Signs
Vital Signs
Temp Pulse Resp BP Pulse Ox
98.8 F 126 17 147/101 98
12/14/24 16:16 12/14/24 16:15 12/14/24 16:15 12/14/24 16:00 12/14/24 13:50
Physical Exam
General: Well Developed, Well Nourished, Appears Chronically Ill and Obese
HEENT: Nose Appears Normal and Ears Appear Normal
Respiratory: Clear
Cardiac: S1/S2, Regular Rhythm and Tachycardia
GI: Soft, Non Tender and Non Distended
Musculoskeletal: No Clubbing, No Cyanosis and No Edema
Skin: Warm; No Dry
Neuro: Awake, Alert and Oriented
Psych: Anxious
Laboratory Results
-
12/14/24 12:56
12/14/24 12:56
Laboratory Results
Total Bilirubin 0.7 mg/dl (0.2-1.3) 12/14/24 12:56
AST 162 U/L (17-59) H 12/14/24 12:56
ALT 160 U/L (0-50) H 12/14/24 12:56
Alkaline Phosphatase 60 U/L (38-126) 12/14/24 12:56
Data Reviewed
-
Lab Data: Labs Reviewed by me
Impression/Plan
-
IMPRESSION:
29 man with alcohol wd.
PLAN:
1. Alcohol WD, high risk of complicated withdrawal that may require presedex.
Admit to IMU
Re-check labs in am
2. Elevated AST/ALT - likely from alcohol
Check in am to see trend
3. Elevated BP - likely from etoh WD
Check trend
Treat WD
Full code
VCD for DVTp
--- NOTE | 2024-12-14 19:04 | EDRN ---
Pt says he has been on a month long parada of drinking 18-20 beers daily. Last alcohol intake was 0700 this morning. Pt wants detox from alcohol. Last detox was September 2023. Pt smokes marijuana occasionally - last smoked yesterday. Pt complains
of chest discomfort. 'little' nausea, last vomited this morning. No fever/cough, abd pain. Pt has had chills. Pt feels shaky
--- NOTE | 2024-12-14 20:42 | EDRN ---
Report called to IMU
[2024-12-14] MEDS: ATIVAN 1 MG PO (22:26)
[2024-12-14] MEDS: CATAPRES 0.3 MG PO (22:26)
--- NOTE | 2024-12-14 22:50 | PTCARENOTE ---
received pt from ED at 21:00. pt aaox3, easily overstimulated, hx aspergers. States that he feels lightheaded when standing. When attempting to walk beside patient, patient states 'don't come too close to me', 'I'll do it my way on my own'. Pt
settled in bed, admission questions completed. EKG done, NSR/ST with PVC. VSS. Call payton within reach. Care ongoing.
--- NOTE | 2024-12-14 22:59 | PTCARENOTE ---
MSAS 8. 1mg PO ativan given per protocol.
[2024-12-15] VITALS (10 sets, daily range): BP systolic 106–149; BP diastolic 57–98
[2024-12-15] MEDS: THIAMINE INJECTION 200 MG IV ×3 (00:15→16:17)
[2024-12-15 04:29] LABS: Hematocrit 38.5 % (39.0-52.0); Hemoglobin 13.3 g/dL (13.0-18.0); Mean Corp Hgb Conc. 34.5 g/dL (33.0-37.0); Mean Corpuscular Volume 88.1 fL (80.0-94.0); Platelet Count 211 10^3/uL (130-400); Red Cell Dist. Width 12.4 % (11.5-14.5)
[2024-12-15 04:40] LABS: INR 1.03; PT 13.8 Sec (11.4-14.6)
[2024-12-15 04:41] LABS: APTT 24.4 Sec (23.4-35.0)
[2024-12-15 04:58] LABS: ALT (SGPT) 153 U/L (0-50); AST (SGOT) 146 U/L (17-59); Albumin 4.0 g/dl (3.5-5.0); Alkaline Phosphatase 47 U/L (38-126); Blood Urea Nitrogen 13 mg/dl (9-20); Calcium 9.2 mg/dl (8.4-10.2); Carbon Dioxide 29 mmol/L (22-30); Chloride 104 mmol/L (98-107); Estimated Creatinine Clearance > 125 ml/min; Glucose 85 mg/dl (70-99); Magnesium 2.2 mg/dl (1.6-2.3); Potassium 4.0 mmol/L (3.5-5.1); Sodium 137 mmol/L (135-145); Total Protein 5.9 g/dl (6.3-8.2); eGFR > 60.00
[2024-12-15] MEDS: NSS 1000 IV ×3 (05:50→20:42)
[2024-12-15] MEDS: FOLVITE 1 MG PO (08:15)
[2024-12-15] MEDS: PROZAC 40 MG PO (08:16)
[2024-12-15] MEDS: ATIVAN 1 MG PO ×5 (08:20→20:43)
[2024-12-15] MEDS: NICODERM TRANSDERMAL 14 MG TRANSDERM (09:48)
--- NOTE | 2024-12-15 10:32 | W.PN.HOSP.TC ---
Addendum entered and electronically signed by Vannesa Ferrer MD 12/15/24 15:18:
I saw and evaluated the patient independently. I reviewed the resident�s note and agree with findings and plan as documented by Dr. Nieto.
GENERAL: well developed, well nourished, male in no apparent distress
HEENT: NC/AT
HEART: regular rate and rhythm, +S1, +S2--tachycardic
LUNGS : clear to auscultation bilaterally
ABDOM: soft, nontender, nondistended, + bowel sounds
EXT: no cyanosis, clubbing, or edema
NEUROLOGIC: sleepy (just medicated)--moves all extremities
Acute Alcohol withdrawal from Alcohol dependence--pt indicates wants help quitting--cont MSAS protocol--cont thiamine and folate repletion--check and replete mag, phos--may need psych consult--consult [facility]--cont IVF--for now does not seem to need
precedex
Nicotine dependence- NicoDerm transdermal patch 14 mg daily-- she states that her mom will be bringing nicotine gum from home. Continue as needed.
Hypertension --likely due to alcohol withdrawal--unclear if patient has essential HTN at baseline--clonidine could be for symptoms of anxiety/PTSD--for now cont clonidine, may need IV beta chucho (labetalol) if unable to take PO-
Anxiety/PTSD- Continue home Vraylar 3 mg p.o. daily- Continue home clonidine HCl 0.3 mg p.o. at bedtime- Continue fluoxetine 40 mg p.o. daily
DVT proph-- SCDs
CODE STATUS-- Full code
Original Note:
Today's Communication/Plan
-
Continue to monitor and treat as per MSAS protocol
Continue home medications for anxiety and PTSD
NicoDerm patch and nicotine gum from home
Assessment / Plan
Assessment / Plan
Marilu ( name Patricia Enriquez (she/they) is a 29-yo with anxiety and 10+yrs of alcohol dependence who presented to the ED on 12/14/2024 for management of alcohol withdrawal and seeking inpatient rehab. Of note, this is her 3rd visit/admission in
the past 1.5 years (August 2024 and September 2023). She has never had seizures from withdrawal. Her last reported drink was on 12/14/2024 at 7pm. She reports drinking 16-24 drinks (mostly vodka) daily for the past decade or so (started drinking age 18).
She gives permission to talk to her mother about her care and would like to pursue inpatient rehab.
#Alcohol withdrawal
#Alcohol dependence
- Continue on MSAS protocol per guidelines
- Follow-up magnesium and replete as needed
- Continue IV fluids
#Nicotine dependence
- NicoDerm transdermal patch 14 mg daily
- Spoke to patient and she states that her mom will be bringing nicotine gum from home. Continue as needed.
#Hypertension 2/2 alcohol withdrawal
This is transient and expected to resolve after withdrawal.
- Continue to monitor and trend
#Anxiety
#PTSD
- Continue home Vraylar 3 mg p.o. daily
- Continue home clonidine HCl 0.3 mg p.o. at bedtime
- Continue fluoxetine 40 mg p.o. daily
DVT prophy: SCDs
CODE STATUS: Full code
Anticipated Discharge: > 48 hours (Pending alcohol withdrawal, clinical improvement, and case management to inpatient rehab.)
Subjective/Interval History
-
Date of Service: December 15, 2024
Marilu ( name Patricia Enriquez (she/they) is a 29-yo with anxiety and 10+yrs of alcohol dependence who presented to the ED on 12/14/2024 for management of alcohol withdrawal and seeking inpatient rehab. Of note, this is her 3rd visit/admission in
the past 1.5 years (August 2024 and September 2023). She has never had seizures from withdrawal. Her last reported drink was on 12/14/2024 at 7pm. She reports drinking 16-24 drinks (mostly vodka) daily for the past decade or so (started drinking age 18).
- This morning, alert but agitated upon questioning. She says she feels jittery, improved with Ativan.
- She had one episode of emesis this morning around 6a.
- She'd like to pursue inpatient rehab after withdrawal management.
Objective Data
-
Labs:
Laboratory Results
12/15/24
04:18
WBC 7.5
Hgb 13.3
Hct 38.5 L
Plt Count 211
PT 13.8
INR 1.03
APTT 24.4
Sodium 137
Potassium 4.0
Chloride 104
Carbon Dioxide 29
BUN 13
Creatinine 0.9
Glucose 85
Calcium 9.2
Total Bilirubin 1.4 H
AST 146 H
ALT 153 H
Alkaline Phosphatase 47
Vital Signs:
Vital Signs
Temp Pulse Resp BP Pulse Ox
98.6 F 83 17 106/59 94
12/15/24 07:36 12/15/24 03:00 12/15/24 03:00 12/15/24 02:00 12/15/24 03:00
Review of Systems
-
History Source: Patient
All other systems: Reviewed and negative
Constitutional: Reports Sleep Disturbance and Other ('Jittery')
Abdomen/GI: Reports Nausea and Vomiting
Skin: Reports Other
Neuro: Reports Headache
Physical Exam
-
General: Other (Laying in bed, curled up with lights off. Answers questions appropriately when asked, otherwise dosing in and out of sleep.)
HEENT: Normocephalic, Atraumatic and Moist Mucous Membranes
Respiratory: Clear to Auscultation and Non Labored Respirations
Cardiac: Regular Rhythm and S1/S2
GI: Soft, Nontender and Nondistended
Musculoskeletal: No Clubbing, No Cyanosis and No Edema
Skin: Warm and Dry
Neuro: AO x 3
Psych: Intact Judgement/Insight
--- NOTE | 2024-12-15 12:19 | CM ---
Reviewed the chart notes and spoke with the patient at the bedside. Patient resides with mother in a two story home with two steps to enter. The patient reports no DME/VN/SNF in the past. The patient confirmed her pharmacy is [facility] [address]
[place]. CM consult received for substance abuse. Magy information provided to the patient. CM continues to be available to patient/family and is monitoring medical plan for needs at discharge.
Plan: Discharge to home when medically stable.
--- NOTE | 2024-12-15 18:40 | PTCARENOTE ---
Assumed care of pt after morning rounds and pt has been medicated per [facility] protocol. Pt is biological male but identifies as female and wants to be referred to as GILLIAN and as she. Pt becomes very angry if wrong pronouns are used. Staff respectful
and continues to respect pt's identity
[2024-12-15] MEDS: CATAPRES 0.3 MG PO (20:42)
[2024-12-15] MEDS: REMOVE NICOTINE PATCH 1 PATCH REMOVE (21:25)
[2024-12-16] VITALS: BP 120/70
[2024-12-16] MEDS: THIAMINE INJECTION 200 MG IV ×2 (00:19→08:37)
[2024-12-16 02:00] VITALS: BP 115/74
--- NOTE | 2024-12-16 02:51 | PTCARENOTE ---
Pt calmly resting in bed. sleeping. VSS. Pt admits to being tired. Denying any feelings of nausea or restlessness at this time. AAOx3. call light in reach. safe environment maintained.
[2024-12-16 04:00] VITALS: BP 126/79
[2024-12-16 07:24] VITALS: BP 131/68
[2024-12-16] MEDS: NSS 1000 IV (07:35)
[2024-12-16 08:00] VITALS: BP 130/80
--- NOTE | 2024-12-16 08:17 | W.PN.UPDATE ---
Addendum entered and electronically signed by Louis Faulkner MD 12/16/24 11:47:
Total time spent on d/c = 35 min. This included today's physical exam, progress note, review of laboratory and diagnostic data, preparation of discharge documents and prescriptions, and discussions about the pt's hospital course and discharge plan
with the patient and other medical doctor md/medical director involved in the patient's care.
Original Note:
Update Note
Progress Note Update
I saw and evaluated the patient. I reviewed the resident�s note and agree with findings and plan as documented in the resident�s note.
Denies AH/VH/tremors. Reports feeling swings in temperature from hot to cold and visa versa.
Pt seen and examined with ARNOLD Andres/Akira present at bedside for the entirety of the interview and physical exam:
Gen: NAD, AAOx3.
Eyes: EOMI, PERRLA, no scleral icterus.
Neck: supple.
CV: RRR, +S1/S2, no m/r/g.
Resp: CTAB, no rales, wheezes, or rhonchi.
Abd: +BS, soft, NT, ND
Skin: No rashes.
Neuro: CN 2-12 intact, non-focal.
Psych: Normal mood and affect.
Acute Alcohol withdrawal due to alcohol abuse disorder:
-with acute alcoholic hepatitis
-cont MSAS (thiamine/folate/PRN ativan)
-currently hemodynamically stable
Hypertension:
-likely due to alcohol withdrawal
-BPs have improved
Other problems:
Nicotine dependence: cont Nicotine TD
Obesity due to excess calories
Anxiety/PTSD: cont Vraylar/clonidine/fluoxetine
FULL/SCDs
Medically cleared for d/c.
[2024-12-16] MEDS: NICODERM TRANSDERMAL 14 MG TRANSDERM (08:37)
[2024-12-16] MEDS: PROZAC 40 MG PO (08:37)
[2024-12-16] MEDS: FOLVITE 1 MG PO (08:37)
[2024-12-16 09:16] LABS: ALT (SGPT) 147 U/L (0-50); AST (SGOT) 94 U/L (17-59); Albumin 4.0 g/dl (3.5-5.0); Alkaline Phosphatase 45 U/L (38-126); Blood Urea Nitrogen 6 mg/dl (9-20); Calcium 8.8 mg/dl (8.4-10.2); Carbon Dioxide 27 mmol/L (22-30); Chloride 107 mmol/L (98-107); Estimated Creatinine Clearance > 125 ml/min; Glucose 96 mg/dl (70-99); Potassium 4.2 mmol/L (3.5-5.1); Sodium 137 mmol/L (135-145); Total Protein 6.1 g/dl (6.3-8.2); eGFR > 60.00
[2024-12-16] MEDS: ATIVAN 1 MG PO (09:23)
--- NOTE | 2024-12-16 09:32 | W.PN.HOSP.TC ---
Today's Communication/Plan
-
Discharged to [facility] rehab this afternoon
Assessment / Plan
Assessment / Plan
Marilu ( name Patricia Enriquez (she/they) is a 29-yo with anxiety and 10+yrs of alcohol dependence who presented to the ED on 12/14/2024 for management of alcohol withdrawal and seeking inpatient rehab. Of note, this is her 3rd visit/admission in
the past 1.5 years (August 2024 and September 2023). She has never had seizures from withdrawal. Her last reported drink was on 12/14/2024 at 7pm. She reports drinking 16-24 drinks (mostly vodka) daily for the past decade or so (started drinking age 18).
She gives permission to talk to her mother about her care and would like to pursue inpatient rehab. Medically stable for d/c on 12/16/2024; CM coordinated transfer to [place] [facility] for patient rehab this afternoon.
#Alcohol withdrawal
#Alcohol dependence
- Continue on MSAS protocol per guidelines
- Follow-up magnesium and replete as needed
- Continue IV fluids
#Nicotine dependence
- NicoDerm transdermal patch 14 mg daily
- Spoke to patient and she states that her mom will be bringing nicotine gum from home. Continue as needed.
#Hypertension 2/2 alcohol withdrawal
This is transient and expected to resolve after withdrawal.
- Continue to monitor and trend
#Anxiety
#PTSD
- Continue home Vraylar 3 mg p.o. daily
- Continue home clonidine HCl 0.3 mg p.o. at bedtime
- Continue fluoxetine 40 mg p.o. daily
DVT prophy: SCDs
CODE STATUS: Full code
Anticipated Discharge: Today (This afternoon to [facility] rehab.)
Subjective/Interval History
-
Date of Service: December 16, 2024
- NAEON.
- This morning, reports feeling hot and cold, but no N/V nor agitation.
- DC to [facility] rehab this afternoon.
Objective Data
-
Labs:
Laboratory Results
12/16/24
08:46
Sodium 137
Potassium 4.2
Chloride 107
Carbon Dioxide 27
BUN 6 L
Creatinine 0.8
Glucose 96
Calcium 8.8
Total Bilirubin 0.7
AST 94 H
ALT 147 H
Alkaline Phosphatase 45
Vital Signs:
Vital Signs
Temp Pulse Resp BP Pulse Ox
97.4 F 80 16 126/79 98
12/16/24 07:10 12/16/24 06:00 12/16/24 04:00 12/16/24 04:00 12/16/24 06:31
I&O
12/15/24 12/16/24 12/17/24
06:59 06:59 06:59
Output Total 1500 / 1500 500 / 500
Balance -1500 / -1500 -500 / -500
--- NOTE | 2024-12-16 10:04 | W.DCSUMMARY ---
Discharge Summary
Discharge Data
Date of Admission: 12/14/24
Date of Discharge: 12/16/24
-
Pending Results: No
Hospital Course
Discharging Physician : John Nieto MD/ANCA
Disposition : Inpatient rehab for alcohol withdrawal, [facility]
Primary care physician : Dr. Manjit Hi
Principal Discharge diagnosis : Acute alcohol withdrawal secondary to alcohol abuse disorder
Chronic Discharge diagnosis : Alcohol abuse disorder
Hospital Course : Marilu ( name Patricia Enriquez (she/they) is a 29-yo smoker with anxiety, PTSD, and 10+yrs of alcohol abuse disorder who presented to the ED on 12/14/2024 for management of acute alcohol withdrawal and seeking inpatient rehab. In
the ED, her vitals were notable for BP 171/110, pulse 117, and labs were notable for AST 162, ALT 160, positive urine amphetamines, positive urine marijuana/THC, and alcohol quantitative 19. EKG was notable for sinus tachycardia with occasional
PVCs, otherwise normal when compared to priors. Her last reported drink was on 12/14/2024 at 7pm. She reported drinking 16-24 drinks (mostly vodka) daily for the past decade or so (started drinking age 18). She was admitted to the IMU and put on the
MSAS protocol. Her hypertension was most likely secondary to acute alcohol withdrawal and resolved on its own the same day. Of note, this is her 3rd visit/admission in the past 1.5 years. Her previous admissions were in August 2024 and September 2023.
She has never had seizures from withdrawal. This admission, she expressed interest about wanting to go to inpatient rehab for alcohol abuse disorder after she was out of the withdrawal window. Throughout the hospital course, which was 12/14/2024 to
12/16/2024, she did not have any seizures, and was managed per MSAS protocol without any complication. Her chronic diagnoses of anxiety, PTSD, and nicotine dependence were managed with home medications throughout hospital course. She was discharged
on 12/16/2024 to [facility] rehab on home medications and NicoDerm for further management.
Discharge Plan
-
Patient Disposition: Acute Rehab Facility
Discharge Diagnosis/Procedures: Acute Alcohol Withdrawal secondary to alcohol abuse disorder
Condition: Good
Diet: No restrictions
Activity: No restrictions
Driving Restrictions: As prior to admission
Bathing Restrictions: None
Blood Work: Per [facility] rehab
Others Tests: Per [facility] rehab
Referrals:
Manjit Hi DO [Family Provider, [facility]] - in less than 1 week
Referral Note: Please follow-up with your PCP to discuss ongoing care and plan for abstaining from alcohol. I also encourage you to do the same about nicotine use.
Prescriptions:
New
nicotine 14 mg/24 hr Patch 24 Hour
14 mg transdermal DAILY 30 Days Qty: 30 0RF
Continued
fluoxetine 40 mg capsule
40 mg PO DAILY 30 Days Qty: 30 0RF
clonidine HCl 0.3 MG tablet
0.3 mg PO HS 30 Days Qty: 30 0RF
Vraylar 3 mg Capsule
3 mg PO DAILY 30 Days Qty: 30 0RF
Discharge Orders:
Discharge Patient (As Directed); Ordered 12/16/24
Ordered By: Louis Faulkner
Discharge Date and Time
Print Language: NIGERIEN
[2024-12-16 10:48] VITALS: BP 132/74
--- NOTE | 2024-12-16 11:51 | CM ---
CM reviewed pt with attending and ready for dc
Bedside meeting with pt and she is in agreement with inpt D/A
Coordination with [facility]/Jacques throughout day
Plan for [facility] today, [facility] will obtain auth
[facility] to provide transport at [id number]
Hard scripts and dc paperwork to be provided to pt to carry to facility
Bedside update with pt and mother
Discharge Disposition- [facility] inpt D/A
== END 2024-12-16 13:30 | DRG 897 ==
LOC: IMU 18:52
PROVIDERS: Physician Assistant; ADMITTING PHYSICIAN Internal Medicine; ATTENDING PHYSICIAN Internal Medicine; EMERGENCY PHYSICIAN Emergency Medicine; FAMILY PHYSICIAN Family Medicine
DX: F10.139 Alcohol abuse with withdrawal, unspecified (principal); F84.5 Asperger's syndrome; I49.3 Ventricular premature depolarization; F41.9 Anxiety disorder, unspecified; F43.10 Post-traumatic stress disorder, unspecified; F17.200 Nicotine dependence, unspecified, uncomplicated; F32.A Depression, unspecified; I10 Essential (primary) hypertension
CPT/HCPCS: 80053; 80306; 80307; 81003; 81015; 82077; 83735; 84100; 85025; 85027; 85610; 85730; 93005; 96361; 96374; 96375; 96376; 99284; 99406